=== PATIENT | female | born 1950 | race Caucasian/White ===

== ENCOUNTER → 2018-11-09 | Outpatient (CLI) | payer OTHER ==
[~2018-11-09] MED LIST: ALTACE2.5 MG PO; FOLGARD TABLET1 EACH PO; GLUMETZA500 MG PO; ZOCOR PO
== END | disposition home or self-care (01) ==
LOC: RAD 11:18
DX: N20.0 Calculus of kidney (principal)

== ENCOUNTER 2018-11-22 11:03 | Day surgery (SDC) | payer OTHER | END 2018-11-22 19:50 | disposition home or self-care (01) | LOC: CIR.AMB 11:03 | DX: N20.1 Calculus of ureter (principal); N13.5 Crossing vessel and stricture of ureter without hydronephrosis ==

== ENCOUNTER → 2018-12-13 | Day surgery (SDC) | payer OTHER | END | disposition home or self-care (01) | LOC: EDBD → CIR.AMB 09:00 | DX: N20.0 Calculus of kidney (principal) ==